=== PATIENT | male | born 1970 | race Caucasian/White ===

== ENCOUNTER 2017-11-01 07:35 | Day surgery (SDC) | payer OTHER ==
[~2017-11-01] VITALS: Ht 167.6 cm; Wt 78.0 kg
[~2017-11-01 07:35] MED LIST: ACETAMINOPHEN325 M1 PO; ANTI-ITCH28 G1 TP; BENZOYL PEROXID60 G4 TP; CALCIUM + D3 E1 EACH PO; CEROVITE ADVAN1 EACH PO; CLARITIN10 M3 PO; FLONASE ALLERG9.9 ML BOTH NARES; FLUOCINOLON118.28 ML TP; GAS RELIEF 8080 MG PO; KENALOG,ARISTOC80 GM TP; LAMISIL AT12 GM TP; MOBIC15 MG PO; NEOMYCIN-POLYMY10 M1 TP; NIZORAL SHAMPO120 ML TP; ROBITUSSIN DM118 ML PO; SYSTANE BALANCE10 ML BOTH EYES; TRIPLE ANTIB28.35 GM TP; TYLENOL EXTRA500 MG PO; VITAMIN D31000 UNIT PO; XANAX0.5 MG PO
[2017-11-01 08:26] VITALS: BP 126/83
[2017-11-01 09:37] LABS: METH RESISTANT S AUREUS PCR NEGATIVE (NEGATIVE)
[2017-11-01 09:38] LABS: PROBE CHECK PASS; SPECIMEN PROCESSING CONTROL PASS
[2017-11-01] MEDS ORDERED: COLACE100 MG PO (10:27)
[2017-11-01] MEDS ORDERED: NORCO 10/3251 TABLET PO (10:27)
[2017-11-01 11:18] VITALS: BP 120/60
[2017-11-01 12:10] VITALS: BP 110/61
== END 2017-11-01 12:35 | disposition home or self-care (01) ==
LOC: SDC 07:35
PROVIDERS: Surgery
DX: D17.1 Benign lipomatous neoplasm of skin and subcutaneous tissue of trunk (principal); K21.9 Gastro-esophageal reflux disease without esophagitis; G80.9 Cerebral palsy, unspecified; F70 Mild intellectual disabilities; M85.80 Other specified disorders of bone density and structure, unspecified site; Z88.0 Allergy status to penicillin
CPT/HCPCS: 87641; 88304; J2250; J2405; J3010